=== PATIENT | female | born 1945 | race Caucasian/White ===

== ENCOUNTER → 2018-07-12 | Outpatient (REF) | payer MEDICARE | LOC: M LAB REF 11:28 | DX: C50.912 Malignant neoplasm of unspecified site of left female breast (principal) | CPT/HCPCS: 88305 ==

== ENCOUNTER 2018-09-16 07:53 | Day surgery (SDC) | payer MEDICARE ==
[~2018-09-16] VITALS: Ht 162.6 cm; Wt 90.7 kg
[~2018-09-16 07:53] MED LIST: LASI20TA PO; NS 1,000 ML IV ONE; PROT20TA11 PO; TYLE650T35 PO; ZETI10TA30 PO
[2018-09-16] MEDS ORDERED: LIDOCAINE 2% INJ 100 MG/5 ML SDV (FOR ANES.) As Ordered ONE (08:48)
[2018-09-16] MEDS ORDERED: PROPOFOL 200 MG/20 ML VIAL As Ordered ONE (08:48)
--- NOTE | 2018-09-16 09:16 | ROOR ---
Patient Name: Patti Gallo Procedure Date: 09/16/2018 8:53 AM Date of : 1945 Age: 73 Room: [facility] Gender: Female Note Status: Finalized Procedure: Colonoscopy Indications: Screening in patient at increased risk: Family history of 1st-degree relative with colorectal cancer Providers: Gomez Briseno Jr, MD Referring MD: Kala Fernandez NP Requesting Provider: Medicines: Propofol per Anesthesia Complications: No immediate complications. Procedure: Pre-Anesthesia Assessment: - Prior to the procedure, a History and Physical was performed, and patient medications and allergies were reviewed. The patient is competent. The risks and benefits of the procedure and the sedation options and risks were discussed with the patient. All questions were answered and informed consent was obtained. Patient identification and proposed procedure were verified by the physician and the nurse in the pre-procedure area and in the procedure room. Mental Status Examination: alert and oriented. Airway Examination: normal oropharyngeal airway and neck mobility. Respiratory Examination: clear to auscultation. CV Examination: normal. ASA Grade Assessment: II - A patient with mild systemic disease. After reviewing the risks and benefits, the patient was deemed in satisfactory condition to undergo the procedure. The anesthesia plan was to use moderate sedation / analgesia (conscious sedation). Immediately prior to administration of medications, the patient was re-assessed for adequacy to receive sedatives. The heart rate, respiratory rate, oxygen saturations, blood pressure, adequacy of pulmonary ventilation, and response to care were monitored throughout the procedure. The physical status of the patient was re-assessed after the procedure. The Colonoscope was introduced through the anus and advanced to the cecum, identified by appendiceal orifice and ileocecal valve. The colonoscopy was performed without difficulty. The patient tolerated the procedure well. The quality of the bowel preparation was adequate and fair. Findings: The rectum, recto-sigmoid colon, transverse colon, ascending colon, cecum, appendiceal orifice and ileocecal valve appeared normal. Many small and large-mouthed diverticula were found in the sigmoid colon and descending colon. Impression: - Preparation of the colon was fair. - The rectum, recto-sigmoid colon, transverse colon, ascending colon, cecum, appendiceal orifice and ileocecal valve are normal. - Diverticulosis in the sigmoid colon and in the descending colon. - No specimens collected. Recommendation: - Discharge patient to home (ambulatory). - Repeat colonoscopy in 5 years for screening purposes. Gomez Briseno MD Gomez Briseno Jr, MD 09/16/2018 9:16:07 AM This report has been signed electronically. Number of Addenda: 0 Note Initiated On: 09/16/2018 8:53 AM Estimated Blood Loss: Estimated blood loss: none.
[2018-09-16 09:35] VITALS: BP 175/89
== END 2018-09-16 09:49 | disposition home or self-care (01) ==
LOC: M OPP 07:53
PROVIDERS: ATTEND Surgery
DX: K57.30 Diverticulosis of large intestine without perforation or abscess without bleeding (principal); Z12.11 Encounter for screening for malignant neoplasm of colon; Z80.0 Family history of malignant neoplasm of digestive organs

== ENCOUNTER → 2019-03-14 | Outpatient (REF) | payer MEDICARE ==
[~2019-03-14] MED LIST changes: -LASI20TA PO; +LASI20TA3 PO; -NS 1,000 ML IV ONE
== END ==
LOC: M LAB REF 12:35
PROVIDERS: ATTEND Nurse Practitioner Adult Health
DX: Z20.89 Contact with and (suspected) exposure to other communicable diseases (principal)

== ENCOUNTER → 2020-03-29 | Outpatient (REF) | payer MEDICARE ==
[~2020-03-29] MED LIST changes: +ZETI10TA16 PO; -ZETI10TA30 PO
[2020-03-31 18:07] LABS: Lyme Disease IgG/IgM Antibodie <0.91 ISR (0.00-0.90); Lyme Disease IgM Ab Quantitati <0.80 index (0.00-0.79)
== END ==
LOC: M LAB REF 16:26
PROVIDERS: ATTEND Internal Medicine
DX: M15.9 Polyosteoarthritis, unspecified (principal)

== ENCOUNTER → 2020-04-11 | Outpatient (CLI) | payer MEDICARE ==
[~2020-04-11] MED LIST changes: +ACET650T61 PO; -TYLE650T35 PO
--- NOTE | 2020-04-21 06:40 | SLEEPCENT ---
DATE OF STUDY: 04/11/2020 ORDERED BY: Miryam Coy Nocturnal polysomnography was performed for evaluation of sleep physiology in this patient with a history of excessive somnolence, snoring and nonrestorative sleep who has comorbidities of hypertension and diabetes. 7 hours and 45 minutes of data were reviewed. There were 350.5 minutes of sleep identified. Sleep latency was prolonged at 84.5 minutes. REM latency was prolonged at 171 minutes. Sleep architecture showed some poor progression early in the study. There were 2 REM cycles later. Overall sleep efficiency was 76.2%. REM time was slightly diminished. The electrocardiogram showed a sinus rhythm with frequent PVCs, periods of trigeminy and bigeminy. Electroencephalogram (EEG) showed coarsening in background and otherwise normal waveforms for awake and sleep. There were 54 respiratory events identified of 10 seconds in duration or greater for an apnea-hypopnea index of 9.2. The events were primarily obstructive, not exclusive to sleep stage nor body posture. Arousals from respiratory events occurred 1.5 times per hour and limb activity was seen. Limb movement arousal index was only 2.7. IMPRESSION: Obstructive sleep apnea syndrome (G47.33). Apnea-hypopnea index of 9.2. RECOMMENDATION: The patient should be encouraged to return to the sleep disorder center for pressure therapy. In the interim, alcohol and sedative avoidance should be practiced and caution exercised during the operation of motor vehicles.
== END ==
LOC: M SLEEP 20:00
PROVIDERS: ATTEND Nurse Practitioner Family
DX: R06.83 Snoring (principal)

== ENCOUNTER → 2020-05-23 | Outpatient (CLI) | payer MEDICARE ==
--- NOTE | 2020-06-15 15:06 | SLEEPCENT ---
DATE: 05/23/2020 ORDERED BY: Dr. Miryam Gonzalez Nocturnal polysomnography was performed for the titration of pressure therapy in this patient with obstructive sleep apnea syndrome, apnea-hypopnea index of 9.2. For testing, patient was fit with a ResMed AirFit F30 full-face mask of small size. There was 5 cm of water pressure applied to the circuit, and the lights were extinguished. There was 7 hours and 49 minutes of data reviewed. There was 314 minutes of sleep identified. Sleep latency was prolonged at 71.5 minutes. REM latency was prolonged at 267 minutes. Sleep architecture improved late in the study. Some fragmentation persisted. There was one REM cycle. Overall sleep efficiency was 67.9%. The patient's electrocardiogram showed a sinus rhythm with an average heart rate of 60 beats per minute. EEG showed some mild coarsening. No focal events were appreciated. Normal waveforms for wake and sleep. Respiratory events were fully palliated with CPAP at a pressure of +7. There was minimal limb activity appreciated. IMPRESSION: Obstructive sleep apnea syndrome (G47.33). RECOMMENDATION: Nightly use of pressure therapy, 7 cm of water. MTDD
== END ==
LOC: M SLEEP 20:00
PROVIDERS: ATTEND Nurse Practitioner Family
DX: G47.33 Obstructive sleep apnea (adult) (pediatric) (principal)

== ENCOUNTER → 2020-11-07 | Outpatient (CLI) | payer MEDICARE ==
[~2020-11-07] MED LIST changes: +B COTAB3 PO; +FURO20TA2 PO; +LISI10TA22 PO; +MAGN400C PO; +METO1TAB32 PO; +PROBCAP14 PO; +PROTPAK PO; +RA T500C2 PO; +SEA-1000 PO; +VITA100T56 PO; +VITA500079 PO; +VITA50TA47 PO
== END ==
LOC: M LABSMTC 12:17
PROVIDERS: ATTEND Anesthesiology
DX: Z20.822 Contact with and (suspected) exposure to COVID-19 (principal)

== ENCOUNTER 2020-11-12 07:05 | Day surgery (SDC) | payer MEDICARE ==
[~2020-11-12] VITALS: Ht 160 cm; Wt 98.4 kg
[~2020-11-12 07:05] MED LIST changes: +CEFUROXIME 1MG/0.1ML INTRACAMERAL INJ As Ordered ONE; +DUOVISC (0.50ML VISCOAT/0.55ML PROVISC) OPHTH KIT As Ordered ONE; +OFLOXACIN 0.3 % (OCUFLOX) OPTH SOL 5ML OS ONE; +PHENYLEPHRINE 2.5% OPHTH SOL 2ML OS ONE; +POVIDONE-IODINE 5% OPHTH PREP SOL 30ML As Ordered ONE; +PROPARACAINE 0.5% OPHTH SOL 15ML OS ONE; +TROPICAMIDE 1% OPHTH SOLN 2ML OS ONE
[2020-11-12] MEDS ORDERED: BSS IRR 500ML/OMIDRIA 4ML IRR BAG (OR ONLY) As Ordered ONE (08:27)
[2020-11-12] MEDS ORDERED: MIDAZOLAM INJ 2MG/2ML VIAL (J2250 PER 1MG) As Ordered ONE (08:44)
[2020-11-12] MEDS ORDERED: fentaNYL 100 MCG/2 ML INJECTION (J3010) As Ordered ONE (08:44)
[2020-11-12 09:10] VITALS: BP 159/77
--- NOTE | 2020-11-14 10:54 | RO ---
OPERATIVE NOTE DATE OF OPERATION: 11/12/2020 PREOPERATIVE DIAGNOSIS: 1. Visually significant nuclear sclerotic cataract, left eye. POSTOPERATIVE DIAGNOSIS: 1. Visually significant nuclear sclerotic cataract, left eye. PROCEDURE: 1. Cataract extraction with use of phacoemulsification, and placement of intraocular lens, AU00T0, D 21.5, left eye. SURGEON: Gene Hernandez DO ANESTHESIA: Local (Omidria with MAC) COMPLICATIONS: None POSTOPERATIVE CONDITION: Stable INDICATIONS FOR SURGERY: 1. Blurred vision affecting patient's activities of daily living. DESCRIPTION OF PROCEDURE: The patient was seen in the preoperative area and properly identified. The correct operative eye was identified and marked. The patient received topical anesthetic, antibiotics, and topical dilating drops. The patient was then transferred to the operating room. The correct side was re-identified and a time-out was performed. The eye was prepped and draped in a sterile fashion. The eyelids were isolated with Tegaderm tape and the lids were held open with an adjustable speculum. A 1.0-mm paracentesis incision was made. Omidria was then injected into the anterior chamber. Viscoelastic was then injected into the anterior chamber through the paracentesis. Using a 2.4-mm sharp-tipped keratome, the anterior chamber was entered via a temporal clear cornea incision. A continuous curvilinear capsulorrhexis was created with Utrata forceps. Hydrodissection was performed with BSS on a blunt cannula until the nucleus was able to rotate freely. The crystalline lens was phacoemulsified and aspirated. Irrigation/aspiration was used to remove the cortical material Cohesive viscoelastic was placed into the capsular bag to deepen it. The implant was placed into the capsular bag and allowed to unfold. Placement was confirmed by visualizing the anterior capsulorrhexis. Irrigation/aspiration was used to remove the viscoelastic. The clear corneal incision was hydrated with BSS on a blunt cannula. The lens was well positioned. Intracameral antibiotic was injected into the anterior chamber. The incisions were then tested for leaks and found to be negative. The eye was then palpated for appropriate pressure and adjusted accordingly with BSS. The eyelid speculum was then carefully removed. A shield was placed over the eye. The patient tolerated the procedure well and was discharge to the recovery unit in a stable condition.
== END 2020-11-12 09:18 | disposition home or self-care (01) ==
LOC: M SDC 07:05
PROVIDERS: ATTEND Ophthalmology
DX: H25.12 Age-related nuclear cataract, left eye (principal); I10 Essential (primary) hypertension; E11.9 Type 2 diabetes mellitus without complications; K57.92 Diverticulitis of intestine, part unspecified, without perforation or abscess without bleeding; K21.9 Gastro-esophageal reflux disease without esophagitis; F32.9 Major depressive disorder, single episode, unspecified; G47.30 Sleep apnea, unspecified; Z79.899 Other long term (current) drug therapy; Z91.041 Radiographic dye allergy status; Z88.8 Allergy status to other drugs, medicaments and biological substances
CPT/HCPCS: 66984; J1097; J2250; J3010; V2632

== ENCOUNTER → 2020-11-14 | Outpatient (CLI) | payer MEDICARE ==
[~2020-11-14] MED LIST changes: -CEFUROXIME 1MG/0.1ML INTRACAMERAL INJ As Ordered ONE; -DUOVISC (0.50ML VISCOAT/0.55ML PROVISC) OPHTH KIT As Ordered ONE; -OFLOXACIN 0.3 % (OCUFLOX) OPTH SOL 5ML OS ONE; -PHENYLEPHRINE 2.5% OPHTH SOL 2ML OS ONE; -POVIDONE-IODINE 5% OPHTH PREP SOL 30ML As Ordered ONE; -PROPARACAINE 0.5% OPHTH SOL 15ML OS ONE; -TROPICAMIDE 1% OPHTH SOLN 2ML OS ONE
== END ==
LOC: M LABSMTC 10:21
PROVIDERS: ATTEND Anesthesiology
DX: Z20.828 Contact with and (suspected) exposure to other viral communicable diseases (principal)

== ENCOUNTER 2020-11-19 08:25 | Day surgery (SDC) | payer MEDICARE ==
[~2020-11-19] VITALS: Ht 160 cm; Wt 97.5 kg
[~2020-11-19 08:25] MED LIST changes: +CEFUROXIME 1MG/0.1ML INTRACAMERAL INJ As Ordered ONE; +DUOVISC (0.50ML VISCOAT/0.55ML PROVISC) OPHTH KIT As Ordered ONE; +LIDOCAINE 1% MDV 20ML VIAL SQ PRN; +OFLOXACIN 0.3 % (OCUFLOX) OPTH SOL 5ML OD ONE; +PHENYLEPHRINE 2.5% OPHTH SOL 2ML OD ONE; +POVIDONE-IODINE 5% OPHTH PREP SOL 30ML As Ordered ONE; +PROPARACAINE 0.5% OPHTH SOL 15ML OD ONE; +TROPICAMIDE 1% OPHTH SOLN 2ML OD ONE
[2020-11-19] MEDS ORDERED: TRAZ-252 (09:34)
[2020-11-19] MEDS ORDERED: EXEM25TA (09:34)
[2020-11-19] MEDS ORDERED: BSS IRR 500ML/OMIDRIA 4ML IRR BAG (OR ONLY) As Ordered ONE (10:47)
[2020-11-19] MEDS ORDERED: MIDAZOLAM INJ 2MG/2ML VIAL (J2250 PER 1MG) As Ordered ONE (11:26)
[2020-11-19] MEDS ORDERED: fentaNYL 100 MCG/2 ML INJECTION (J3010) As Ordered ONE (11:26)
[2020-11-19 12:10] VITALS: BP 140/79
--- NOTE | 2020-11-20 09:27 | RO ---
OPERATIVE NOTE DATE OF OPERATION: 11/19/2020 PREOPERATIVE DIAGNOSIS: 1. Visually significant nuclear sclerotic cataract, right eye. POSTOPERATIVE DIAGNOSIS: 1. Visually significant nuclear sclerotic cataract, right eye. PROCEDURE: 1. Cataract extraction with use of phacoemulsification, and placement of intraocular lens, AU00T0, 21.5 D, right eye. SURGEON: Gene Hernandez DO ANESTHESIA: Local (Omidria with MAC) COMPLICATIONS: None POSTOPERATIVE CONDITION: Stable INDICATIONS FOR SURGERY: 1. Blurred vision affecting patient's activities of daily living. DESCRIPTION OF PROCEDURE: The patient was seen in the preoperative area and properly identified. The correct operative eye was identified and marked. The patient received topical anesthetic, antibiotics, and topical dilating drops. The patient was then transferred to the operating room. The correct side was re-identified and a time-out was performed. The eye was prepped and draped in a sterile fashion. The eyelids were isolated with Tegaderm tape and the lids were held open with an adjustable speculum. A 1.0mm paracentesis incision was made. Omidria was then injected into the anterior chamber. Viscoelastic was then injected into the anterior chamber through the paracentesis. Using a 2.4mm sharp-tipped keratome, the anterior chamber was entered via a temporal clear cornea incision. A continuous curvilinear capsulorrhexis was created with Utrata forceps. Hydrodissection was performed with BSS on a blunt cannula until the nucleus was able to rotate freely. The crystalline lens was phacoemulsified and aspirated. Irrigation/aspiration was used to remove the cortical material Cohesive viscoelastic was placed into the capsular bag to deepen it. The implant was placed into the capsular bag and allowed to unfold. Placement was confirmed by visualizing the anterior capsulorrhexis. Irrigation/aspiration was used to remove the viscoelastic. The clear corneal incision was hydrated with BSS on a blunt cannula. The lens was well positioned. Intracameral antibiotic was injected into the anterior chamber. The incisions were then tested for leaks and found to be negative. The eye was then palpated for appropriate pressure and adjusted accordingly with BSS. The eyelid speculum was then carefully removed. A shield was placed over the eye. The patient tolerated the procedure well and was discharge to the recovery unit in a stable condition.
== END 2020-11-19 12:30 | disposition home or self-care (01) ==
LOC: M SDC 08:25
PROVIDERS: ATTEND Ophthalmology
DX: H25.11 Age-related nuclear cataract, right eye (principal); I10 Essential (primary) hypertension; E11.9 Type 2 diabetes mellitus without complications; K57.92 Diverticulitis of intestine, part unspecified, without perforation or abscess without bleeding; K21.9 Gastro-esophageal reflux disease without esophagitis; F32.9 Major depressive disorder, single episode, unspecified; Z79.899 Other long term (current) drug therapy; Z91.041 Radiographic dye allergy status; Z88.8 Allergy status to other drugs, medicaments and biological substances
CPT/HCPCS: 66984; J1097; J2250; J3010; V2632

== ENCOUNTER → 2021-01-01 | Outpatient (CLI) | payer MEDICARE ==
[~2021-01-01] MED LIST changes: -CEFUROXIME 1MG/0.1ML INTRACAMERAL INJ As Ordered ONE; -DUOVISC (0.50ML VISCOAT/0.55ML PROVISC) OPHTH KIT As Ordered ONE; +EXEM25TA; -LIDOCAINE 1% MDV 20ML VIAL SQ PRN; -OFLOXACIN 0.3 % (OCUFLOX) OPTH SOL 5ML OD ONE; -PHENYLEPHRINE 2.5% OPHTH SOL 2ML OD ONE; -POVIDONE-IODINE 5% OPHTH PREP SOL 30ML As Ordered ONE; -PROPARACAINE 0.5% OPHTH SOL 15ML OD ONE; +TRAZ-252; -TROPICAMIDE 1% OPHTH SOLN 2ML OD ONE
--- NOTE | 2021-01-01 18:27 | DEXAMM ---
INDICATION: BREAST CA,ON AROMATASE INHIBITOR. COMPARISON: Comparison studies are from August 19, 2019, September 14, 2006, and August 12, 2000.. TECHNIQUE: Bone density was measured using dual-energy x-ray absorptionmetry (DEXA). FINDINGS: AP SPINE L1-L4 BMD 1.062 g/cm2 Young Adult T-Score -1.1 Age Matched Z-Score 0.7. LT FEMUR, TOTAL BMD 0.854 g/cm2 Young Adult T-Score -1.2 Age Matched Z-Score 0.6. LT NECK BMD 0.779 g/cm2 Young Adult T-Score -1.9 Age Matched Z-Score 0.1. RT FEMUR, TOTAL BMD 0.905 g/cm2 Young Adult T-Score -0.8 Age Matched Z-Score 1.0. RT NECK BMD 0.767 g/cm2 Young Adult T-Score -2.0 Age Matched Z-Score 0.1. IMPRESSION: There is low bone density of the spine. There is low bone density of the left hip. There is low bone density of the right hip. The density of the spine has decreased 2.4% since the initial exam on August 12, 2000. The density of the spine decreased 4.1% since most recent exam on August 19, 2019. The density of the left hip has decreased 10.5% since initial exam on August 12, 2000. The density of the left hip has decreased 2.2% since most recent exam on August 19, 2019. The density of the right hip has decreased 3.7% since the initial exam on August 12, 2000. The density of the right hip has increased 1.8% since the most recent exam on August 19, 2019. FOLLOW-UP: Recommendation for the next bone density exam: 2 years. <Electronically signed by Dilip Hodges > 01/01/21 [id number]
== END ==
LOC: M WHC 12:46
PROVIDERS: ATTEND Internal Medicine Hematology & Oncology
DX: C50.412 Malignant neoplasm of upper-outer quadrant of left female breast (principal); M19.90 Unspecified osteoarthritis, unspecified site; Z79.811 Long term (current) use of aromatase inhibitors

== ENCOUNTER → 2022-01-22 | Outpatient (REF) | payer MEDICARE ==
[2022-01-22 17:22] LABS: FERRITIN 443 NG/ML (8-252); IRON (FE) 116 UG/DL (50-170); PERCENT SATURATION 33.5 % (13.2-45.0); TOTAL IRON BINDING CAPACITY 346 UG/DL (250-450)
[2022-01-22 17:41] LABS: HEPATITIS B SURFACE ANTIGEN NEGATIVE (NEGATIVE)
[2022-01-22 17:43] LABS: HEMATOCRIT 40.9 % (36.0-47.0)
[2022-01-22 18:08] LABS: HEPATITIS C VIRUS ABY INDEX 0.1 INDEX (<0.8)
[2022-01-22 18:09] LABS: HEPATITIS B CORE ANTIBODY IGM NEGATIVE (NEGATIVE)
== END ==
LOC: M LAB REF 16:31
PROVIDERS: ATTEND Internal Medicine
DX: R74.01 Elevation of levels of liver transaminase levels (principal)

== ENCOUNTER → 2022-02-04 | Outpatient (CLI) | payer MEDICARE | LOC: M WHC 07:45 | PROVIDERS: ATTEND Nurse Practitioner Adult Health | DX: R79.89 Other specified abnormal findings of blood chemistry (principal); K76.89 Other specified diseases of liver ==

== ENCOUNTER → 2023-01-02 | Outpatient (CLI) | payer MEDICARE | LOC: M WHC 14:20 | PROVIDERS: ATTEND Internal Medicine Hematology & Oncology | DX: M85.80 Other specified disorders of bone density and structure, unspecified site (principal) ==

== ENCOUNTER → 2023-02-09 | Outpatient (REF) | payer MEDICARE | LOC: M LAB REF 16:25 | PROVIDERS: ATTEND Internal Medicine | DX: R41.3 Other amnesia (principal); M85.9 Disorder of bone density and structure, unspecified ==

== ENCOUNTER → 2023-04-14 | Outpatient (CLI) | payer MEDICARE | LOC: M WHC 12:50 | PROVIDERS: ATTEND Internal Medicine | DX: Z12.31 Encounter for screening mammogram for malignant neoplasm of breast (principal); Z85.3 Personal history of malignant neoplasm of breast ==

== ENCOUNTER → 2023-05-13 | Outpatient (REF) | payer MEDICARE ==
[2023-05-13 15:12] LABS: LIPASE 39 U/L (12-53)
[2023-05-13 15:13] LABS: AMYLASE 42 U/L (30-118)
== END ==
LOC: M LAB REF 14:14
PROVIDERS: ATTEND Nurse Practitioner Adult Health
DX: R53.83 Other fatigue (principal); R19.7 Diarrhea, unspecified

== ENCOUNTER → 2023-05-19 | Outpatient (CLI) | payer MEDICARE ==
[~2023-05-19] MED LIST changes: +GASTROGRAFIN SOLUTION 30ML As Ordered ONE; +ISOVUE-370 76% 100ML VIAL As Ordered ONE
== END ==
LOC: M RAD 08:01
PROVIDERS: ATTEND Nurse Practitioner Adult Health
DX: R10.9 Unspecified abdominal pain (principal); R19.7 Diarrhea, unspecified
CPT/HCPCS: 74178; Q9963; Q9967

== ENCOUNTER → 2023-08-06 | Day surgery (SDC) | payer MEDICARE ==
[~2023-08-06] VITALS: Ht 161.3 cm; Wt 91.6 kg
[~2023-08-06] MED LIST changes: +ALEV220T22 PO; +EZET10TA58 PO; -GASTROGRAFIN SOLUTION 30ML As Ordered ONE; -ISOVUE-370 76% 100ML VIAL As Ordered ONE; +NS 1,000 ML IV ONE; -ZETI10TA16 PO; +fentaNYL 100 MCG/2 ML INJECTION As Ordered ONE; +propofoL 200 MG/20 ML VIAL As Ordered ONE
[2023-08-06 11:52] VITALS: TEMP 96.3
[2023-08-06 12:15] VITALS: BP 185/77; O2SAT 99
== END | disposition home or self-care (01) ==
LOC: M OPP 10:15
PROVIDERS: ATTEND Surgery
DX: Z12.11 Encounter for screening for malignant neoplasm of colon (principal); Z80.0 Family history of malignant neoplasm of digestive organs; K57.30 Diverticulosis of large intestine without perforation or abscess without bleeding; K64.2 Third degree hemorrhoids; K30 Functional dyspepsia; K44.9 Diaphragmatic hernia without obstruction or gangrene; K29.60 Other gastritis without bleeding; E11.9 Type 2 diabetes mellitus without complications; G47.30 Sleep apnea, unspecified; Z79.1 Long term (current) use of non-steroidal anti-inflammatories (NSAID); Z79.818 Long term (current) use of other agents affecting estrogen receptors and estrogen levels; Z79.899 Other long term (current) drug therapy; Z88.8 Allergy status to other drugs, medicaments and biological substances; Z91.041 Radiographic dye allergy status
CPT/HCPCS: 43239; 88305; G0105; J3010

== ENCOUNTER → 2023-09-07 | Outpatient (REF) | payer MEDICARE ==
[~2023-09-07] MED LIST changes: -NS 1,000 ML IV ONE; +SEA OMEGA PO; -SEA-1000 PO; -fentaNYL 100 MCG/2 ML INJECTION As Ordered ONE; -propofoL 200 MG/20 ML VIAL As Ordered ONE
== END ==
LOC: M LAB REF 16:14
PROVIDERS: ATTEND Family Medicine
DX: N39.0 Urinary tract infection, site not specified (principal)

== ENCOUNTER → 2024-01-21 | Outpatient (CLI) | payer MEDICARE | LOC: M WUC 09:38 | PROVIDERS: ATTEND Nurse Practitioner Adult Health | DX: R07.81 Pleurodynia (principal) ==

== ENCOUNTER → 2024-05-04 | Outpatient (CLI) | payer MEDICARE | LOC: M WHC 12:19 | PROVIDERS: ATTEND Internal Medicine | DX: Z85.3 Personal history of malignant neoplasm of breast (principal); R92.323 Mammographic fibroglandular density, bilateral breasts; N64.4 Mastodynia | CPT/HCPCS: 77066; G0279 ==

== ENCOUNTER → 2024-08-29 | Outpatient (CLI) | payer MEDICARE | LOC: M WUC 14:39 | PROVIDERS: ATTEND Internal Medicine | DX: I10 Essential (primary) hypertension (principal); M47.812 Spondylosis without myelopathy or radiculopathy, cervical region; H92.09 Otalgia, unspecified ear ==

== ENCOUNTER → 2025-05-05 | Outpatient (CLI) | payer MEDICARE ==
[~2025-05-05] MED LIST changes: -RA T500C2 PO; +TURM500C10 PO
== END ==
LOC: M WHC 13:18
PROVIDERS: ATTEND Internal Medicine
DX: N63.10 Unspecified lump in the right breast, unspecified quadrant (principal); R92.2 Inconclusive mammogram; R92.323 Mammographic fibroglandular density, bilateral breasts; M85.89 Other specified disorders of bone density and structure, multiple sites